=== PATIENT | female | born 1960 | race African-American/Black ===

== ENCOUNTER 2019-03-28 00:58 | Inpatient (IN) ==
[2019-03-28] MEDS ORDERED: SODIUM CHLORIDE 0.9% 1,000 ML IV STA (01:44)
[2019-03-28] MEDS ORDERED: ALBUTEROL/IPRATROPIUM 3 ML NEB RESP TX STA (01:45)
[2019-03-28 02:02] LABS: Alanine Aminotransferase 41 U/L (13-56); Albumin 3.1 G/DL (3.4-5.0); Alkaline Phosphatase 178 U/L (45-117); Aspartate Amino Transferase 16 U/L (0-37); Bilirubin,Total < 0.39 MG/DL (0.2-1.0); Blood Urea Nitrogen 13 MG/DL (7-18); Calcium 9.5 MG/DL (8.5-10.1); Estimated Glom Filtration Rate 133 ML/MIN; Glucose 269 MG/DL (74-106); Osmolality,Calculated 289.3 MOS/KG (273-304); Total Protein 7.9 G/DL (6.4-8.3)
[2019-03-28 02:10] LABS: Basophils % 0.1 % (0.0-0.8); Eosinophils # 0.1 10*3/uL (0.0-0.87); Eosinophils % 0.7 % (0.00-10.9); Hematocrit 39.8 VOL% (35.7-47.0); Hemoglobin 12.9 GM/DL (12.0-16.0); Immature Granulocytes % 0.5 %; Immature Granulocytes Absolute 0.05 #; Lymphocytes # 2.3 10*3/uL (1.4-4.0); Lymphocytes % 22.7 % (21.3-54.2); Mean Corpuscular HGB Conc 32.4 GM/DL (32-36); Mean Corpuscular Volume 89.2 FL (87-102); Mean Platelet Volume 11.4 FL (9.6-12.0); Monocytes % 6.3 % (1.7-12.7); Neutrophils % 69.7 % (38.7-73.9); Platelet Count 262 T/CUMM (130-400); Red Blood Count 4.46 MC/CUMM (3.8-5.5); White Blood Count 10.3 T/CUMM (4-12)
[2019-03-28 02:14] LABS: PT Patient Result 10.6 SECS (9.6-12.2)
[2019-03-28] MEDS ORDERED: ASPIRIN 325 MG TABLET PO STA (02:36)
[2019-03-28] MEDS ORDERED: NITROGLYCERIN SL 0.4 MG TABLET SL STA (02:44)
[2019-03-28 02:45] LABS: Barbiturates Screen,Urine Negative (Negative); Benzodiazepines Screen,Urine Negative (Negative); Cannabinoid Screen,Urine Negative (Negative); Opiate Screen,Urine Negative (Negative); Phencyclidine Screen,Urine Negative (Negative)
[2019-03-28 02:50] LABS: Apearance,Urine Slightly Hazy (Clear); Bilirubin,Urine Negative (Negative); Blood, Urine Negative (Negative); Calcium Oxalate Crystals,Urine Occasional /HPF (Few); Glucose,Urine (UA) Negative (Negative); Hyaline Casts,Urine 4 /LPF (0-3); Ketones,Urine Negative (Negative); Mucus,Urine Occasional /LPF (Occasional); Nitrite,Urine Negative (Negative); Protein,Urine Negative; RBC,Urine 1 /HPF (0-4); Squamous Epithelial Cell,Urine Occasional /HPF (0-10); Urine Color Yellow (Yellow); Urine Specific Gravity 1.015 (1.001-1.035); Urine Urobilinogen < 2.0 EU/DL (0.2-1.0); WBC,Urine 3 /HPF (0-6)
[2019-03-28] MEDS ORDERED: ENOXAPARIN 30 MG/0.3 ML SYRINGE SUBCUT STA (03:30)
[2019-03-28] MEDS ORDERED: METOPROLOL TARTRATE 5 MG/5 ML VIAL IV STA (03:33)
[2019-03-28] MEDS ORDERED: METOPROLOL TARTRATE 5 MG/5 ML VIAL IV ONE (03:34)
[2019-03-28] MEDS ORDERED: ENOXAPARIN 100 MG/ML SYRINGE SUBCUT ONE (03:36)
[2019-03-28] MEDS ORDERED: TOPIRAMATE 100 MG TABLET PO ONE (03:58)
[2019-03-28] MEDS ORDERED: NICOTINE 21 MG/24 HR PATCH TRANSDERM PRN (04:02)
[2019-03-28] MEDS ORDERED: ACETAMINOPHEN 325 MG TABLET PO PRN (04:02)
[2019-03-28] MEDS ORDERED: ONDANSETRON 4 MG/2 ML VIAL IV PRN (04:02)
[2019-03-28] MEDS ORDERED: BISACODYL 5 MG TABLET PO PRN (04:02)
[2019-03-28] MEDS ORDERED: guaiFENesin/DM ER 600-30 MG TABLET PO PRN (04:02)
[2019-03-28] MEDS ORDERED: diphenhydrAMINE CAP 25 MG CAPSULE PO PRN (04:02)
[2019-03-28 04:32] LABS: HDL Cholesterol 58 MG/DL (40-60); Risk Ratio 3.59; Thyroid Stimulating Hormone < 0.005 uIU/ml (0.358-3.74); Triglycerides 234 MG/DL (2-150); VLDL CHOLESTEROL 46.8 MG/DL
[2019-03-28] MEDS ORDERED: DEXTROSE 50% 25 GM/50 ML VIAL IV PRN (06:08)
[2019-03-28] MEDS ORDERED: GLUCAGON 1 MG VIAL IM PRN (06:08)
[2019-03-28] MEDS: MORPHINE 4 MG/1 ML VIAL IV PRN ×2 (06:21→12:43)
[2019-03-28] MEDS: PANTOPRAZOLE 40 MG TABLET PO SCH (09:14)
[2019-03-28] MEDS: TOPIRAMATE 200 MG TABLET PO SCH ×2 (09:14→21:16)
[2019-03-28] MEDS: INSULIN REGULAR 100 UNIT/ML SUBCUT SCH ×4 (09:15→21:15)
[2019-03-28] MEDS: LEVALBUTEROL 1.25 MG/3 ML NEB RESP TX SCH ×3 (11:25→19:36)
[2019-03-28] MEDS ORDERED: methylPREDNISolone SOD SUC 40 MG/1 ML VIAL IV SCH (12:00)
[2019-03-28] MEDS ORDERED: propylthiouraciL 50 MG TABLET PO ONE (12:00)
[2019-03-28] MEDS: HYDROCORTISONE 100 MG VIAL IV SCH ×2 (12:44→21:13)
[2019-03-28] MEDS: amLODIPine 5 MG TABLET PO SCH (14:00)
[2019-03-28] MEDS ORDERED: carvediloL 3.125 MG TABLET PO ONE (14:36)
[2019-03-28] MEDS: carvediloL 3.125 MG TABLET PO SCH ×2 (16:04→21:17)
[2019-03-28] MEDS: ENOXAPARIN 100 MG/ML SYRINGE SUBCUT SCH (17:37)
[2019-03-28] MEDS: propylthiouraciL 50 MG TABLET PO SCH ×2 (17:38→21:17)
[2019-03-28] MEDS: MONTELUKAST 10 MG TABLET PO SCH (21:16)
[2019-03-29] MEDS: LEVALBUTEROL 1.25 MG/3 ML NEB RESP TX SCH ×7 (00:20→23:20)
[2019-03-29] MEDS: HYDROCORTISONE 100 MG VIAL IV SCH ×3 (04:11→22:42)
[2019-03-29] MEDS: ENOXAPARIN 100 MG/ML SYRINGE SUBCUT SCH ×2 (04:11→17:39)
[2019-03-29] MEDS ORDERED: amLODIPine 5 MG TABLET PO SCH (09:00)
[2019-03-29] MEDS ORDERED: DIAZEPAM 5 MG TABLET PO ONE (09:11)
[2019-03-29] MEDS ORDERED: POTASSIUM CHLORIDE RIDER 10 MEQ in PREMIX 1 EACH IV PRN (09:11)
[2019-03-29] MEDS ORDERED: MAGNESIUM SULF RIDER 2 GM in PREMIX 1 EACH IV PRN (09:11)
[2019-03-29] MEDS ORDERED: diphenhydrAMINE CAP 25 MG CAPSULE PO ONE (09:11)
[2019-03-29] MEDS: INSULIN REGULAR 100 UNIT/ML SUBCUT SCH ×4 (09:13→22:47)
[2019-03-29] MEDS: propylthiouraciL 50 MG TABLET PO SCH ×4 (09:17→22:44)
[2019-03-29] MEDS: amLODIPine 5 MG TABLET PO SCH (09:18)
[2019-03-29] MEDS: PANTOPRAZOLE 40 MG TABLET PO SCH (09:18)
[2019-03-29] MEDS: TOPIRAMATE 200 MG TABLET PO SCH ×2 (09:18→22:46)
[2019-03-29] MEDS: carvediloL 6.25 MG TABLET PO SCH ×2 (09:23→22:43)
[2019-03-29] MEDS: carvediloL 3.125 MG TABLET PO SCH (09:23)
[2019-03-29] MEDS: MORPHINE 4 MG/1 ML VIAL IV PRN (09:52)
[2019-03-29] MEDS: ASPIRIN EC 81 MG TABLET PO SCH (11:57)
[2019-03-29] MEDS: ROSUVASTATIN 20 MG TABLET PO SCH (22:43)
[2019-03-29] MEDS: MONTELUKAST 10 MG TABLET PO SCH (22:45)
[2019-03-29] MEDS: traZODone 50 MG TABLET PO SCH (22:45)
[2019-03-30] MEDS: LEVALBUTEROL 1.25 MG/3 ML NEB RESP TX SCH ×6 (03:20→23:48)
[2019-03-30] MEDS: ENOXAPARIN 100 MG/ML SYRINGE SUBCUT SCH ×2 (04:10→16:02)
[2019-03-30] MEDS: HYDROCORTISONE 100 MG VIAL IV SCH ×3 (04:11→21:47)
[2019-03-30 04:55] LABS: Basophils % 0.1 % (0.0-0.8); Eosinophils % 0.1 % (0.00-10.9); Hematocrit 35.5 VOL% (35.7-47.0); Hemoglobin 11.5 GM/DL (12.0-16.0); Immature Granulocytes % 0.3 %; Immature Granulocytes Absolute 0.03 #; Lymphocytes # 2.7 10*3/uL (1.4-4.0); Mean Corpuscular HGB Conc 32.4 GM/DL (32-36); Mean Corpuscular Volume 89.2 FL (87-102); Mean Platelet Volume 11.6 FL (9.6-12.0); Monocytes % 3.3 % (1.7-12.7); Neutrophils % 69.2 % (38.7-73.9); Platelet Count 238 T/CUMM (130-400); Red Blood Count 3.98 MC/CUMM (3.8-5.5); Red Cell Distribution Width 13.3 % (9.3-17.3); White Blood Count 9.8 T/CUMM (4-12)
[2019-03-30 05:12] LABS: Osmolality,Calculated 288.3 MOS/KG (273-304)
[2019-03-30] MEDS: INSULIN REGULAR 100 UNIT/ML SUBCUT SCH ×4 (08:27→22:04)
[2019-03-30] MEDS ORDERED: diphenhydrAMINE CAP 50 MG CAPSULE PO ONE (09:00)
[2019-03-30] MEDS ORDERED: DIAZEPAM 5 MG TABLET PO ONE (09:00)
[2019-03-30] MEDS: ASPIRIN EC 81 MG TABLET PO SCH (09:19)
[2019-03-30] MEDS: TOPIRAMATE 200 MG TABLET PO SCH ×2 (09:19→21:46)
[2019-03-30] MEDS: propylthiouraciL 50 MG TABLET PO SCH ×4 (09:19→21:46)
[2019-03-30] MEDS: carvediloL 6.25 MG TABLET PO SCH (09:19)
[2019-03-30] MEDS: PANTOPRAZOLE 40 MG TABLET PO SCH (09:20)
[2019-03-30] MEDS: amLODIPine 5 MG TABLET PO SCH (09:20)
[2019-03-30 11:20] LABS: Thyroglob. AB < 1.8 IU/mL (<4.0)
[2019-03-30] MEDS ORDERED: LIDOCAINE 1% 20 ML VIAL ONE (15:18)
[2019-03-30] MEDS ORDERED: NITROGLYCERIN DRIP 50 MG/250 ML BOTTLE IV ONE (15:18)
[2019-03-30] MEDS ORDERED: VERAPAMIL 5 MG/2 ML VIAL ONE (15:18)
[2019-03-30] MEDS ORDERED: HYDROmorphone 2 MG/1 ML VIAL ONE (15:26)
[2019-03-30] MEDS ORDERED: MIDAZOLAM 2 MG/2 ML VIAL ONE (15:27)
[2019-03-30] MEDS ORDERED: ENOXAPARIN 60 MG/0.6 ML SYRINGE ONE (15:38)
[2019-03-30] MEDS ORDERED: NITROGLYCERIN SL 0.4 MG TABLET SL PRN (15:50)
[2019-03-30] MEDS: carvediloL 12.5 MG TABLET PO SCH (21:46)
[2019-03-30] MEDS: traZODone 50 MG TABLET PO SCH (21:46)
[2019-03-30] MEDS: MONTELUKAST 10 MG TABLET PO SCH (21:47)
[2019-03-30] MEDS: ROSUVASTATIN 20 MG TABLET PO SCH (21:47)
[2019-03-31] MEDS: MORPHINE 4 MG/1 ML VIAL IV PRN (02:52)
[2019-03-31] MEDS: LEVALBUTEROL 1.25 MG/3 ML NEB RESP TX SCH ×3 (03:04→10:58)
[2019-03-31] MEDS: HYDROCORTISONE 100 MG VIAL IV SCH (04:06)
[2019-03-31] MEDS: ENOXAPARIN 100 MG/ML SYRINGE SUBCUT SCH (04:09)
[2019-03-31 05:23] LABS: Basophils % 0.3 % (0.0-0.8); Hematocrit 36.1 VOL% (35.7-47.0); Hemoglobin 11.3 GM/DL (12.0-16.0); Immature Granulocytes % 0.6 %; Immature Granulocytes Absolute 0.05 #; Lymphocytes # 2.2 10*3/uL (1.4-4.0); Lymphocytes % 27.5 % (21.3-54.2); Mean Corpuscular HGB Conc 31.3 GM/DL (32-36); Mean Corpuscular Volume 90.9 FL (87-102); Mean Platelet Volume 12.2 FL (9.6-12.0); Monocytes % 4.8 % (1.7-12.7); Neutrophils % 66.8 % (38.7-73.9); Platelet Count 251 T/CUMM (130-400); Red Blood Count 3.97 MC/CUMM (3.8-5.5); Red Cell Distribution Width 13.5 % (9.3-17.3)
[2019-03-31 05:35] LABS: Calcium 8.8 MG/DL (8.5-10.1); Osmolality,Calculated 292.3 MOS/KG (273-304)
[2019-03-31] MEDS: TOPIRAMATE 200 MG TABLET PO SCH (08:40)
[2019-03-31] MEDS: PANTOPRAZOLE 40 MG TABLET PO SCH (08:40)
[2019-03-31] MEDS: amLODIPine 5 MG TABLET PO SCH (08:41)
[2019-03-31] MEDS: INSULIN REGULAR 100 UNIT/ML SUBCUT SCH ×2 (08:41→11:54)
[2019-03-31] MEDS: ASPIRIN EC 81 MG TABLET PO SCH (08:41)
[2019-03-31] MEDS: propylthiouraciL 50 MG TABLET PO SCH ×2 (08:41→14:21)
[2019-03-31] MEDS: carvediloL 12.5 MG TABLET PO SCH (09:26)
[2019-03-31 12:31] VITALS: BP 147/74
[2019-03-31 13:49] LABS: Apearance,Urine CLEAR (Clear); Bilirubin,Urine Negative (Negative); Blood, Urine Negative (Negative); Calcium Oxalate Crystals,Urine Occasional /HPF (Few); Glucose,Urine (UA) >=500 mg/dL (Negative); Ketones,Urine 5 mg/dL (Negative); Mucus,Urine Occasional /LPF (Occasional); Nitrite,Urine Negative (Negative); Protein,Urine Negative; RBC,Urine 1 /HPF (0-4); Squamous Epithelial Cell,Urine Occasional /HPF (0-10); Urine Color Yellow (Yellow); Urine Urobilinogen < 2.0 EU/DL (0.2-1.0); WBC,Urine <1 /HPF (0-6)
== END 2019-03-31 15:00 | disposition home or self-care (01) | DRG 190 ==
LOC: EDBD → EDUNIT# → N.EDINP 00:58 → N.ED 00:58 → N.TELES 04:19 → SUATTDRO 03-29 12:36
PROVIDERS: ADMIT Internal Medicine; ATTEND Internal Medicine
PROC: CLCCHCL (ICD-10-PCS; 2019-03-30 15:15)

== ENCOUNTER 2021-02-19 07:25 | Inpatient (IN) ==
[2021-02-19] MEDS ORDERED: ASPIRIN 325 MG TABLET PO STA (07:43)
[2021-02-19] MEDS ORDERED: NITROGLYCERIN 2% OINT 1 INCH/GM PACK TOP STA (07:43)
[2021-02-19] MEDS ORDERED: ENOXAPARIN 120 MG/0.8 ML SYRINGE SUBCUT STA (07:53)
[2021-02-19 08:45] LABS: Basophils % 0.1 % (0.0-0.8); Eosinophils # 0.1 10*3/uL (0.0-0.87); Eosinophils % 0.4 % (0.00-10.9); Hematocrit 41.2 VOL% (35.7-47.0); Hemoglobin 13.5 GM/DL (12.0-16.0); Immature Granulocytes % 0.4 %; Immature Granulocytes Absolute 0.05 #; Lymphocytes # 2.8 10*3/uL (1.4-4.0); Lymphocytes % 20.5 % (21.3-54.2); Mean Corpuscular HGB Conc 32.8 GM/DL (32-36); Mean Corpuscular Volume 91.8 FL (87-102); Monocytes % 3.8 % (1.7-12.7); Neutrophils % 74.8 % (38.7-73.9); Platelet Count 309 T/CUMM (130-400); Red Blood Count 4.49 MC/CUMM (3.8-5.5); Red Cell Distribution Width 14.3 % (9.3-17.3); White Blood Count 13.6 T/CUMM (4-12)
[2021-02-19 09:07] LABS: Alanine Aminotransferase 34 U/L (13-56); Albumin 3.3 G/DL (3.4-5.0); Alkaline Phosphatase 111 U/L (45-117); Aspartate Amino Transferase 30 U/L (0-37); Bilirubin,Total < 0.39 MG/DL (0.20-1.00); Blood Urea Nitrogen 15 MG/DL (7-18); Calcium 8.7 MG/DL (8.5-10.1); Carbon Dioxide 22 MMOL/L (21-32); Estimated Glom Filtration Rate 119 ML/MIN; Glucose 246 MG/DL (74-106); Osmolality,Calculated 276.2 MOS/KG (273-304); Potassium 3.3 MMOL/L (3.5-5.1); Sodium 134 MMOL/L (136-145); Total Protein 7.9 G/DL (6.4-8.2)
[2021-02-19 09:13] LABS: PT Patient Result 11.3 SECS (10.5-12.0); Partial Thromboplastin Time 28.9 SECS (23.9-33.8)
[2021-02-19] MEDS ORDERED: ONDANSETRON 4 MG/2 ML VIAL ONE (09:14)
[2021-02-19] MEDS ORDERED: MORPHINE 2 MG/1 ML SYRINGE ONE (09:15)
[2021-02-19] MEDS ORDERED: MORPHINE 2 MG/1 ML SYRINGE IV STA (09:36)
[2021-02-19] MEDS ORDERED: ONDANSETRON 4 MG/2 ML VIAL IV STA (09:36)
[2021-02-19] MEDS ORDERED: LEVALBUTEROL 1.25 MG/3 ML NEB RESP TX STA (09:36)
[2021-02-19] MEDS ORDERED: diphenhydrAMINE CAP 25 MG CAPSULE PO PRN (09:58)
[2021-02-19] MEDS ORDERED: MAGNESIUM SULF RIDER 4 GM/100 ML PREMIX IV PRN (09:58)
[2021-02-19] MEDS ORDERED: MAGNESIUM SULF RIDER 2 GM/50 ML PREMIX IV PRN ×2 (09:58→10:53)
[2021-02-19] MEDS ORDERED: INSULIN NPH/REGULAR 70/30 100 UNIT/ML SUBCUT PRN (10:05)
[2021-02-19] MEDS ORDERED: FUROSEMIDE 40 MG TABLET PO PRN (10:05)
[2021-02-19] MEDS ORDERED: DEXTROSE 50% 25 GM/50 ML VIAL IV PRN (10:05)
[2021-02-19] MEDS ORDERED: GLUCAGON 1 MG VIAL IM PRN (10:05)
[2021-02-19] MEDS ORDERED: tiZANidine 4 MG TABLET PO PRN (10:05)
[2021-02-19] MEDS ORDERED: allopurinoL 100 MG TABLET PO PRN (10:05)
[2021-02-19] MEDS ORDERED: GABAPENTIN 600 MG TABLET PO PRN (10:05)
[2021-02-19] MEDS ORDERED: CYCLOBENZAPRINE 10 MG TABLET PO PRN (10:05)
[2021-02-19] MEDS ORDERED: METOPROLOL TARTRATE 5 MG/5 ML VIAL IV STA (10:17)
[2021-02-19] MEDS: ALBUTEROL 2.5 MG/3 ML NEB RESP TX SCH ×3 (10:22→19:06)
[2021-02-19] MEDS ORDERED: POTASSIUM CHLORIDE RIDER 10 MEQ/100 ML PREMIX IV PRN (10:53)
[2021-02-19] MEDS: FAMOTIDINE 20 MG/2 ML VIAL IV SCH ×2 (11:16→21:58)
[2021-02-19] MEDS: methylPREDNISolone SOD SUC 40 MG/1 ML VIAL IV SCH ×3 (11:26→17:11)
[2021-02-19] MEDS: diphenhydrAMINE CAP 50 MG CAPSULE PO SCH ×2 (11:27→21:57)
[2021-02-19] MEDS ORDERED: diphenhydrAMINE CAP 25 MG CAPSULE PO ONE (11:30)
[2021-02-19] MEDS ORDERED: DIAZEPAM 5 MG TABLET PO ONE (11:30)
[2021-02-19] MEDS ORDERED: POLYETHYLENE GLYCOL POWDER 17 GM PACK PO PRN (11:34)
[2021-02-19] MEDS ORDERED: MIDAZOLAM 2 MG/2 ML VIAL ONE (11:53)
[2021-02-19] MEDS ORDERED: VERAPAMIL 5 MG/2 ML VIAL ONE ×2 (11:53→12:58)
[2021-02-19] MEDS ORDERED: NITROGLYCERIN DRIP 50 MG/250 ML BOTTLE IV ONE (11:53)
[2021-02-19] MEDS ORDERED: HYDROmorphone 2 MG/1 ML VIAL ONE (11:53)
[2021-02-19] MEDS ORDERED: LIDOCAINE 1% 20 ML VIAL ONE (12:54)
[2021-02-19] MEDS ORDERED: POTASSIUM CHLORIDE RIDER 10 MEQ/100 ML PREMIX IV ONE ×2 (13:15→13:19)
[2021-02-19] MEDS ORDERED: TIROFIBAN 5,000 MCG/100 ML PREMIX IV ONE (13:20)
[2021-02-19] MEDS ORDERED: TIROFIBAN 5,000 MCG/100 ML PREMIX IV SCH (13:27)
[2021-02-19] MEDS ORDERED: TICAGRELOR 90 MG TABLET ONE (14:03)
[2021-02-19] MEDS: SODIUM CHLORIDE 0.9% 1,000 ML IV SCH (15:08)
[2021-02-19] MEDS: INSULIN REGULAR 100 UNIT/ML SUBCUT SCH ×3 (15:08→21:57)
[2021-02-19] MEDS: SUCRALFATE 1 GM/10 ML UDCUP PO SCH ×3 (15:09→21:57)
[2021-02-19] MEDS: FUROSEMIDE 40 MG/4 ML VIAL IV SCH (15:10)
[2021-02-19 15:32] LABS: CKMB % 7.7 %
[2021-02-19] MEDS: POTASSIUM CHLORIDE 10 MEQ TABLET PO SCH (21:56)
[2021-02-19] MEDS: ROSUVASTATIN 20 MG TABLET PO SCH (21:56)
[2021-02-19] MEDS: TOPIRAMATE 200 MG TABLET PO SCH (21:57)
[2021-02-19] MEDS: carvediloL 25 MG TABLET PO SCH (21:57)
[2021-02-19] MEDS: GLIMEPIRIDE 4 MG TABLET PO SCH (21:57)
[2021-02-19] MEDS: INSULIN NPH/REGULAR 70/30 100 UNIT/ML SUBCUT SCH (21:58)
[2021-02-20] MEDS: methylPREDNISolone SOD SUC 40 MG/1 ML VIAL IV SCH ×2 (00:15→06:03)
[2021-02-20] MEDS: ALBUTEROL 2.5 MG/3 ML NEB RESP TX SCH ×4 (00:55→19:45)
[2021-02-20 06:15] LABS: Basophils % 0.2 % (0.0-0.8); Hematocrit 42.9 VOL% (35.7-47.0); Hemoglobin 14.1 GM/DL (12.0-16.0); Immature Granulocytes % 0.6 %; Immature Granulocytes Absolute 0.11 #; Lymphocytes # 3.1 10*3/uL (1.4-4.0); Lymphocytes % 17.3 % (21.3-54.2); Mean Corpuscular HGB Conc 32.9 GM/DL (32-36); Mean Corpuscular Volume 92.1 FL (87-102); Mean Platelet Volume 11.4 FL (9.6-12.0); Monocytes % 1.7 % (1.7-12.7); Neutrophils % 80.2 % (38.7-73.9); Platelet Count 322 T/CUMM (130-400); Red Blood Count 4.66 MC/CUMM (3.8-5.5); Red Cell Distribution Width 14.5 % (9.3-17.3); White Blood Count 17.7 T/CUMM (4-12)
[2021-02-20 06:28] LABS: Bilirubin,Total 0.7 MG/DL (0.20-1.00); Calcium 8.5 MG/DL (8.5-10.1); Osmolality,Calculated 284.8 MOS/KG (273-304); Potassium 3.7 MMOL/L (3.5-5.1); Risk Ratio 3.93; Total Protein 7.7 G/DL (6.4-8.2); VLDL Cholesterol 18.8 MG/DL
[2021-02-20 06:33] LABS: CKMB % 5.9 %
[2021-02-20 06:34] LABS: High Sensitive Troponin I* 8733.5 ng/L (0-54)
[2021-02-20] MEDS: SODIUM CHLORIDE 0.9% 1,000 ML IV SCH (08:39)
[2021-02-20] MEDS ORDERED: hydroCHLOROthiazide 12.5 MG CAPSULE PO SCH (09:00)
[2021-02-20] MEDS ORDERED: VALSARTAN 80 MG TABLET PO SCH (09:00)
[2021-02-20] MEDS ORDERED: BISACODYL 5 MG TABLET PO ONE (09:09)
[2021-02-20] MEDS: ASPIRIN EC 81 MG TABLET PO SCH (09:19)
[2021-02-20] MEDS: POTASSIUM CHLORIDE 10 MEQ TABLET PO SCH (09:19)
[2021-02-20] MEDS: PANTOPRAZOLE 40 MG TABLET PO SCH (09:19)
[2021-02-20] MEDS: GLIMEPIRIDE 4 MG TABLET PO SCH ×2 (09:20→20:55)
[2021-02-20] MEDS: INSULIN NPH/REGULAR 70/30 100 UNIT/ML SUBCUT SCH ×2 (09:20→20:56)
[2021-02-20] MEDS: FUROSEMIDE 40 MG/4 ML VIAL IV SCH (09:20)
[2021-02-20] MEDS: SUCRALFATE 1 GM/10 ML UDCUP PO SCH ×4 (09:20→20:55)
[2021-02-20] MEDS: carvediloL 25 MG TABLET PO SCH ×2 (09:21→20:55)
[2021-02-20] MEDS: INSULIN REGULAR 100 UNIT/ML SUBCUT SCH ×4 (09:21→20:55)
[2021-02-20] MEDS: TICAGRELOR 90 MG TABLET PO SCH ×2 (09:21→20:55)
[2021-02-20] MEDS: methIMAzole 5 MG TABLET PO SCH (09:26)
[2021-02-20] MEDS: TOPIRAMATE 200 MG TABLET PO SCH ×2 (09:26→20:55)
[2021-02-20] MEDS ORDERED: SPIRONOLACTONE 25 MG TABLET PO SCH ×2 (12:15→21:00)
[2021-02-20] MEDS ORDERED: FUROSEMIDE 40 MG/4 ML VIAL IV ONE (15:37)
[2021-02-20] MEDS: SPIRONOLACTONE 25 MG TABLET PO SCH (20:54)
[2021-02-20] MEDS: ROSUVASTATIN 20 MG TABLET PO SCH (20:55)
[2021-02-21] MEDS: ALBUTEROL 2.5 MG/3 ML NEB RESP TX SCH ×4 (02:23→20:57)
[2021-02-21 05:02] LABS: Basophils % 0.2 % (0.0-0.8); Hematocrit 42.1 VOL% (35.7-47.0); Immature Granulocytes % 0.7 %; Immature Granulocytes Absolute 0.13 #; Lymphocytes % 14.9 % (21.3-54.2); Mean Corpuscular HGB Conc 33.3 GM/DL (32-36); Mean Corpuscular Volume 91.9 FL (87-102); Mean Platelet Volume 11.4 FL (9.6-12.0); Neutrophils % 77.2 % (38.7-73.9); Platelet Count 315 T/CUMM (130-400); Red Blood Count 4.58 MC/CUMM (3.8-5.5); Red Cell Distribution Width 14.6 % (9.3-17.3); White Blood Count 19.8 T/CUMM (4-12)
[2021-02-21 05:19] LABS: Calcium 8.6 MG/DL (8.5-10.1); Osmolality,Calculated 285.4 MOS/KG (273-304); Potassium 3.2 MMOL/L (3.5-5.1)
[2021-02-21] MEDS ORDERED: POTASSIUM CHLORIDE 20 MEQ TABLET PO ONE (08:53)
[2021-02-21] MEDS: INSULIN REGULAR 100 UNIT/ML SUBCUT SCH ×4 (09:30→21:22)
[2021-02-21] MEDS: FUROSEMIDE 40 MG TABLET PO SCH (09:32)
[2021-02-21] MEDS: ASPIRIN EC 81 MG TABLET PO SCH (09:32)
[2021-02-21] MEDS: methIMAzole 5 MG TABLET PO SCH (09:32)
[2021-02-21] MEDS: PANTOPRAZOLE 40 MG TABLET PO SCH (09:33)
[2021-02-21] MEDS: GLIMEPIRIDE 4 MG TABLET PO SCH ×2 (09:33→21:13)
[2021-02-21] MEDS: SPIRONOLACTONE 25 MG TABLET PO SCH ×2 (09:33→21:13)
[2021-02-21] MEDS: carvediloL 25 MG TABLET PO SCH ×2 (09:33→21:13)
[2021-02-21] MEDS: VALSARTAN 80 MG TABLET PO SCH (09:33)
[2021-02-21] MEDS: TICAGRELOR 90 MG TABLET PO SCH ×2 (09:33→21:13)
[2021-02-21] MEDS: INSULIN NPH/REGULAR 70/30 100 UNIT/ML SUBCUT SCH ×2 (09:34→21:21)
[2021-02-21] MEDS: SUCRALFATE 1 GM/10 ML UDCUP PO SCH ×4 (09:34→21:19)
[2021-02-21] MEDS: TOPIRAMATE 200 MG TABLET PO SCH ×2 (09:36→21:13)
[2021-02-21] MEDS ORDERED: ERGOCALCIFEROL 50,000 UNIT CAPSULE PO SCH (10:05)
[2021-02-21] MEDS ORDERED: DEXTROSE 50% 25 GM/50 ML VIAL IV PRN (15:12)
[2021-02-21] MEDS: ROSUVASTATIN 20 MG TABLET PO SCH (21:13)
[2021-02-22] MEDS: ALBUTEROL 2.5 MG/3 ML NEB RESP TX SCH ×2 (01:49→07:20)
[2021-02-22 06:59] LABS: Basophils % 0.3 % (0.0-0.8); Eosinophils % 0.4 % (0.00-10.9); Hematocrit 43.7 VOL% (35.7-47.0); Hemoglobin 14.3 GM/DL (12.0-16.0); Immature Granulocytes % 0.5 %; Immature Granulocytes Absolute 0.05 #; Lymphocytes # 3.9 10*3/uL (1.4-4.0); Lymphocytes % 37.5 % (21.3-54.2); Mean Corpuscular HGB Conc 32.7 GM/DL (32-36); Mean Corpuscular Volume 93.2 FL (87-102); Mean Platelet Volume 11.2 FL (9.6-12.0); Monocytes % 8.8 % (1.7-12.7); Neutrophils % 52.5 % (38.7-73.9); Platelet Count 309 T/CUMM (130-400); Red Blood Count 4.69 MC/CUMM (3.8-5.5); White Blood Count 10.4 T/CUMM (4-12)
[2021-02-22 07:17] LABS: Calcium 8.9 MG/DL (8.5-10.1); Osmolality,Calculated 282.4 MOS/KG (273-304); Potassium 3.9 MMOL/L (3.5-5.1)
[2021-02-22] MEDS: INSULIN REGULAR 100 UNIT/ML SUBCUT SCH ×2 (08:15→11:39)
[2021-02-22] MEDS: TOPIRAMATE 200 MG TABLET PO SCH (09:17)
[2021-02-22] MEDS: GLIMEPIRIDE 4 MG TABLET PO SCH (09:18)
[2021-02-22] MEDS: VALSARTAN 80 MG TABLET PO SCH (09:18)
[2021-02-22] MEDS: PANTOPRAZOLE 40 MG TABLET PO SCH (09:19)
[2021-02-22] MEDS: ASPIRIN EC 81 MG TABLET PO SCH (09:19)
[2021-02-22] MEDS: FUROSEMIDE 40 MG TABLET PO SCH (09:19)
[2021-02-22] MEDS: TICAGRELOR 90 MG TABLET PO SCH (09:19)
[2021-02-22] MEDS: SPIRONOLACTONE 25 MG TABLET PO SCH (09:19)
[2021-02-22] MEDS: methIMAzole 5 MG TABLET PO SCH (09:20)
[2021-02-22] MEDS: carvediloL 25 MG TABLET PO SCH (09:20)
[2021-02-22] MEDS: INSULIN NPH/REGULAR 70/30 100 UNIT/ML SUBCUT SCH (09:20)
[2021-02-22] MEDS: SUCRALFATE 1 GM/10 ML UDCUP PO SCH (09:20)
[2021-02-22 11:59] VITALS: BP 129/73
== END 2021-02-22 12:40 | disposition home or self-care (01) | DRG 247 ==
LOC: EDUNIT# → EDBD → N.EDINP 07:25 → N.ED 07:25 → N.TELES 10:50
PROVIDERS: ADMIT Internal Medicine Cardiovascular Disease; ATTEND Internal Medicine Cardiovascular Disease
PROC: CLCCHCL (ICD-10-PCS; 2021-02-19 12:15)

== ENCOUNTER 2021-03-29 21:45 | Observation (INO) ==
[2021-03-29 23:29] LABS: Basophils % 0.2 % (0.0-0.8); Eosinophils # 0.1 10*3/uL (0.0-0.87); Eosinophils % 1.1 % (0.00-10.9); Hematocrit 41.1 VOL% (35.7-47.0); Hemoglobin 13.4 GM/DL (12.0-16.0); Immature Granulocytes % 0.5 %; Immature Granulocytes Absolute 0.06 #; Lymphocytes # 4.1 10*3/uL (1.4-4.0); Lymphocytes % 32.7 % (21.3-54.2); Mean Corpuscular HGB Conc 32.6 GM/DL (32-36); Mean Corpuscular Volume 91.9 FL (87-102); Mean Platelet Volume 11.3 FL (9.6-12.0); Monocytes % 5.8 % (1.7-12.7); Neutrophils % 59.7 % (38.7-73.9); Platelet Count 293 T/CUMM (130-400); Red Blood Count 4.47 MC/CUMM (3.8-5.5); Red Cell Distribution Width 14.4 % (9.3-17.3); White Blood Count 12.7 T/CUMM (4-12)
[2021-03-29 23:51] LABS: Alanine Aminotransferase 26 U/L (13-56); Albumin 3.6 G/DL (3.4-5.0); Alkaline Phosphatase 99 U/L (45-117); Aspartate Amino Transferase 17 U/L (0-37); Bilirubin,Total < 0.39 MG/DL (0.20-1.00); Blood Urea Nitrogen 19 MG/DL (7-18); Calcium 9.5 MG/DL (8.5-10.1); Carbon Dioxide 29 MMOL/L (21-32); Estimated Glom Filtration Rate 63 ML/MIN; Glucose 143 MG/DL (74-106); Osmolality,Calculated 278.7 MOS/KG (273-304); Potassium 3.8 MMOL/L (3.5-5.1); Sodium 138 MMOL/L (136-145); Total Protein 7.4 G/DL (6.4-8.2)
[2021-03-30] MEDS ORDERED: GLUCAGON 1 MG VIAL IM PRN (01:23)
[2021-03-30] MEDS ORDERED: TICAGRELOR 90 MG TABLET PO STA (01:23)
[2021-03-30] MEDS ORDERED: DEXTROSE 50% 25 GM/50 ML VIAL IV PRN (01:23)
[2021-03-30] MEDS ORDERED: tiZANidine 4 MG TABLET PO PRN (02:19)
[2021-03-30] MEDS ORDERED: GABAPENTIN 600 MG TABLET PO PRN (02:19)
[2021-03-30] MEDS ORDERED: allopurinoL 100 MG TABLET PO PRN (02:19)
[2021-03-30] MEDS ORDERED: MORPHINE 2 MG/1 ML SYRINGE IV PRN (04:44)
[2021-03-30] MEDS: ALBUTEROL/IPRATROPIUM 3 ML NEB RESP TX SCH ×2 (07:29→13:34)
[2021-03-30 07:37] LABS: Basophils # 0.1 10*3/uL (0.0-0.2); Basophils % 0.4 % (0.0-0.8); Eosinophils # 0.2 10*3/uL (0.0-0.87); Eosinophils % 1.2 % (0.00-10.9); Hemoglobin 13.5 GM/DL (12.0-16.0); Immature Granulocytes % 0.3 %; Immature Granulocytes Absolute 0.04 #; Lymphocytes % 38.9 % (21.3-54.2); Mean Corpuscular HGB Conc 32.9 GM/DL (32-36); Mean Corpuscular Volume 91.9 FL (87-102); Mean Platelet Volume 11.4 FL (9.6-12.0); Monocytes % 5.7 % (1.7-12.7); Neutrophils % 53.5 % (38.7-73.9); Platelet Count 276 T/CUMM (130-400); Red Blood Count 4.46 MC/CUMM (3.8-5.5); Red Cell Distribution Width 14.3 % (9.3-17.3); White Blood Count 12.9 T/CUMM (4-12)
[2021-03-30 08:06] LABS: Calcium 9.3 MG/DL (8.5-10.1); Osmolality,Calculated 277.8 MOS/KG (273-304); Potassium 3.3 MMOL/L (3.5-5.1)
[2021-03-30 08:07] LABS: Eosinophils 1 % (0-10); Lymphocytes 35 % (20-55); Platelet Estimate Normal; Segmented Neutrophils 61 % (50-85); Total Cells Counted 100
[2021-03-30] MEDS ORDERED: POTASSIUM CHLORIDE 20 MEQ TABLET PO ONE (08:09)
[2021-03-30] MEDS ORDERED: KETOROLAC 30 MG/1 ML VIAL IV ONE (08:52)
[2021-03-30] MEDS ORDERED: TOPIRAMATE 200 MG TABLET PO SCH (09:00)
[2021-03-30] MEDS ORDERED: methIMAzole 5 MG TABLET PO SCH (09:00)
[2021-03-30] MEDS ORDERED: POLYETHYLENE GLYCOL POWDER 17 GM PACK PO PRN (09:00)
[2021-03-30] MEDS ORDERED: SPIRONOLACTONE 25 MG TABLET PO SCH (09:00)
[2021-03-30] MEDS ORDERED: carvediloL 25 MG TABLET PO SCH (09:00)
[2021-03-30] MEDS ORDERED: FUROSEMIDE 40 MG TABLET PO SCH (09:00)
[2021-03-30] MEDS ORDERED: TICAGRELOR 90 MG TABLET PO SCH (09:00)
[2021-03-30] MEDS ORDERED: ASPIRIN EC 81 MG TABLET PO SCH (09:00)
[2021-03-30] MEDS ORDERED: ENOXAPARIN 40 MG/0.4 ML SYRINGE SUBCUT SCH (09:30)
[2021-03-30] MEDS: SUCRALFATE 1 GM/10 ML UDCUP PO SCH ×3 (10:15→18:37)
[2021-03-30] MEDS ORDERED: ISOSORBIDE MONONITRATE 30 MG TABLET PO SCH (10:24)
[2021-03-30] MEDS ORDERED: methylPREDNISolone SOD SUC 40 MG/1 ML VIAL IV ONE (10:59)
[2021-03-30] MEDS ORDERED: diphenhydrAMINE 50 MG/1 ML VIAL IV ONE (11:00)
[2021-03-30] MEDS: INSULIN REGULAR 100 UNIT/ML SUBCUT SCH ×3 (11:55→18:36)
[2021-03-30 18:21] VITALS: BP 116/51
[2021-03-30] MEDS ORDERED: ROSUVASTATIN 20 MG TABLET PO SCH (21:00)
[2021-03-30] MEDS ORDERED: RANOLAZINE 500 MG TABLET PO SCH (21:00)
[2021-03-30] MEDS ORDERED: SACUBITRIL/VALSARTAN 49-51 MG TABLET PO SCH (21:00)
[2021-04-01] MEDS ORDERED: ERGOCALCIFEROL 50,000 UNIT CAPSULE PO SCH (09:00)
== END 2021-03-30 18:00 | disposition home or self-care (01) ==
LOC: N.EDINP 21:45 → N.ED 21:45 → N.TELEN 03-30 02:23
PROVIDERS: ADMIT Internal Medicine; ATTEND Internal Medicine